=== PATIENT | male | born 1970 | race Caucasian/White ===

== ENCOUNTER 2018-10-25 11:19 | Inpatient (IN) ==
[2018-10-25] MEDS ORDERED: MoRPHine SULFATE 10 MG/ML CARP/VIAL IV STA (12:06)
[2018-10-25] MEDS ORDERED: ONDANSETRON INJ 2 MG/ML 2 ML VIAL IV STA (12:06)
[2018-10-25] MEDS ORDERED: MoRPHine SULFATE 4 MG/ML 1 ML CARP\\VIAL ONE (12:13)
[2018-10-25] MEDS ORDERED: MoRPHine SULFATE 2 MG/ML CARP ONE (12:14)
[2018-10-25] MEDS ORDERED: SODIUM CHLORIDE 0.9% 1000ML 1,000 ML IV SCH (12:15)
[2018-10-25 12:17] LABS: Appearance Urine Clear (Clear); Bilirubin Urine Negative (Negative); Blood Urine Negative (Negative); Color Urine Yellow; Glucose Urine UA Negative (Negative); Ketones Urine Negative (Negative); Leukocyte Esterase Urine Negative (Negative); Nitrite Urine Negative (Negative); Protein Urine Negative (Negative); Urobilinogen Urine Negative (Negative)
[2018-10-25 12:19] LABS: Basophils # (auto) 0.04 K/uL (0-0.2); Basophils % (auto) 0.5 %; Eosinophils # (auto) 0.32 K/uL (0-0.5); Eosinophils % (auto) 3.8 %; Hematocrit (blood only) 42.1 % (42-52); Hemoglobin 14.9 g/dL (14.0-18.0); Immature Granulocytes # (auto) 0.03 K/uL (0.00-0.02); Immature Granulocytes % (auto) 0.4 %; Lymphocytes # (auto) 2.34 K/uL (1.2-3.4); Lymphocytes % (auto) 27.5 %; Mean Corpuscular Hgb Conc 35.4 g/dL (32-36); Mean Platelet Volume 10.5 fL (7.4-10.4); Monocytes # (auto) 0.63 K/uL (0.11-0.59); Monocytes % (auto) 7.4 %; Neutrophils # (auto) 5.14 K/uL (1.4-6.5); Neutrophils % (auto) 60.4 %; Platelet Count 282 K/uL (130-400); RDW Standard Deviation 42.8 fL (36.4-46.3); Red Blood Count 5.01 M/uL (4.7-6.1)
[2018-10-25 12:34] LABS: Albumin Level 3.9 gm/dl (3.4-5.0); BUN Creatinine Ratio 11.2 (10-20); Calcium 8.8 mg/dl (8.5-10.1); Creatinine Clr Calc Pharmacy 131.6 ml/min; Est GFR (African American) 116.1; Est GFR (Non-African American) 100.2; Potassium 3.9 mmol/L (3.5-5.1)
[2018-10-25 12:37] LABS: Bilirubin,Total 0.3 mg/dl (0.2-1); Globulin 4.1 gm/dl (2.5-4.0)
--- NOTE | 2018-10-25 14:10 | Ultrasound Report ---
US gallbladder CLINICAL HISTORY: Right upper quadrant abdominal pain. COMPARISON STUDY: No previous studies for comparison. FINDINGS: This exam is significantly compromised by suboptimal penetration. Hepatic echogenicity is i ncreased. The liver is enlarged. The pancreas is obscured. No gallstones are identified. There is no biliary ductal dilatation although the common bile duct is partially obscured. Visualized portions me asure 4 mm in caliber. There is no right hydronephrosis. IMPRESSION: 1. Exam compromised by suboptimal penetration. Obscured pancreas. 2. Fatty liver and hepatomegaly. 3. No gallstones or biliary ductal dilatation. Electronically signed by: David Peoples M.D. 10/25/2018 2:08 PM
[2018-10-25] MEDS ORDERED: HYDROmorphone INJ 1 MG/ML SYRINGE IV STA (14:57)
[2018-10-25] MEDS ORDERED: IOVERSOL 100ml IV PRN (15:17)
--- NOTE | 2018-10-25 15:34 | CT Scan Report ---
ABDOMEN AND PELVIS CT WITH IV CONTRAST CT DOSE: 1551.20 mGy.cm HISTORY: sever ruq pain TECHNIQUE: Multiaxial CT images of the abdomen and pelvis were performed following the use of intrave nous contrast. A dose lowering technique was utilized adhering to the principles of ALARA. COMPARISON STUDY: None. FINDINGS: A 4 mm subpleural nodule the right middle lobe on image 16. Calcified granuloma within the right lung base. There is a 4 mm nodule within the left lower lobe on image 10. No pneumoperitoneum. No pneumatosis. No suspicious lytic or blastic osseous lesions. Tiny fat-containing umbilical hernia. Prominent distal esophageal lymph node measuring 11 mm. Hepatic steatosis. The gallbladder, pancreas , spleen, and adrenal glands are unremarkable. The kidneys enhance normally. There are few punctate b ilateral renal calculi. No ureteral calculi. No hydronephrosis. Normal bladder. Small fat-containing bilateral inguinal hernias. No retroperitoneal lymphadenopathy. Focal thickening and mild fat strandi ng surrounding the duodenal bulb. There are few adjacent mildly enlarged lymph nodes in the mesentery with the largest measuring 2.2 x 1.4 cm. These may be reactive to the inflammatory change. Best seen on image 158 there is a 1 cm focal ulceration along the medial wall the duodenal bulb. No evidence f or perforation or abscess at this time. Therefore, these findings are likely secondary to peptic ulce r disease with suggestion of impending perforation. Normal appendix. No evidence for bowel obstructio n. IMPRESSION: 1. Focal thickening and mild fat stranding surrounding the duodenal bulb. There is also a 1 cm focal ulceration along the medial wall of the duodenal bulb. No evidence for perforation or abscess at thi s time. Therefore, these findings are likely secondary to peptic ulcer disease with suggestion of imp ending perforation. Endoscopy is recommended to exclude the possibility of an underlying lesion. 2. A few mildly enlarged lymph nodes adjacent to the duodenum which may be reactive. 3. A single mildly enlarged distal periesophageal lymph node. This is of uncertain clinical significa nce. 4. Bilateral nephrolithiasis. No hydronephrosis. 5. Hepatic steatosis. 6. There are 2 subcentimeter indeterminate pulmonary nodule within the lung bases with the largest me asuring 4 mm. Please refer to the chart below for recommended follow-up. Please refer to below summary of Fleischner criteria recommendations for follow-up of incidental CT n odules Sheryl Rockwell, Guidelines for management of small pulmonary nodules detected on CT scans: A mariely garcia from the Fleischner [employer], Radiology 237: [phone].) SOLID NODULES Solitary nodule size: <6 mm * Low risk patients: no follow-up needed * high risk patients: optional CT at 12 months Solitary nodule size: 6-8 mm * Low risk patients: follow-up at 6-12 months, then consider further follow-up at 18-24 months * high risk patients: initial follow-up CT at 6-12 months and then at 18-24 months if no change Solitary nodule size: >8 mm * either low or high risk patients - consider follow-up CT at 3 months, and/or CT-PET, and/or biopsy Multiple nodules size: <6 mm * Low risk patients: no routine follow-up * high risk patients: optional CT at 12 months Multiple nodules size: 6-8 mm * Low risk patients: follow-up at 3-6 months, then consider further follow-up at 18-24 months * high risk patients: follow-up at 3-6 months, then at 18-24 months if no change Multiple nodules size: >8 mm * Low risk patients: follow-up at 3-6 months, then consider further follow-up at 18-24 months * high risk patients: follow-up at 3-6 months, then at 18-24 months if no change Note: newly detected indeterminate nodule in persons 35 years of age or older. * Low risk patients: minimal or absent history of smoking and/or other known risk factors * high risk patients: history of smoking or of other known risk factors (e.g. first degree relative with lung cancer, or exposure to asbestos, radon, uranium) * if a nodule up to 8 mm is partly solid or is ground glass further follow-up is required after 24 m onths to exclude possible slow growing adenocarcinoma ([facility]) SUBSOLID NODULES Solitary pure ground-glass nodule * nodule size <6 mm - no CT follow-up required * nodule size >=6 mm - follow-up CT at 6-12 months, then every 2 years until 5 years Solitary part-solid nodule * nodule size <6 mm - no CT follow-up required * nodule size >=6 mm - follow-up CT at 3-6 months. If unchanged, and solid component remains <6 mm, then annual follow-up for 5 years Multiple subsolid nodules * nodule size <6 mm - follow-up CT at 3-6 months, consider further follow-up at 2 and 4 years if sta ble * nodule size >=6 mm - follow-up CT at 3-6 months, subsequent management based on the most suspiciou s nodule(s) Electronically signed by: Juwan Whitman M.D. 10/25/2018 3:31 PM
[2018-10-25] MEDS ORDERED: PANTOprazole 80 MG in DEXTROSE 5% 100 ML IV ONE (15:51)
[2018-10-25] MEDS ORDERED: PANTOPRAZOLE BOLUS/DRIP 1 EA IV STA (15:51)
[2018-10-25] MEDS ORDERED: PANTOprazole 40 MG in DEXTROSE 5% 100 ML IV SCH (16:00)
--- NOTE | 2018-10-25 16:59 | History & Physical Report ---
Date of Service October 25, 2018 Assessment & Plan (1) Duodenal ulcer: -CT abdomen "Focal thickening and mild fat stranding surrounding the duodenal bulb. There is also a 1 cm focal ulceration along the medial wall of the duodenal bulb. No evidence for perforation or abscess at this time. There fore, these findings are likely secondary to peptic ulcer disease with suggestion of impending perforation" -Gastroenterology consult requested and ED provider discussed with Dr. Fox who advised medical management for now -continue with IV pantoprazole drip -keep NPO except meds (will minimize oral meds) and sips and chips -give IV fluids as D5 1/2 normal saline while NPO -may benefit from further Gastroenterology service intervention such as upper endoscopy -have requested general surgery consult because radiologist have expressed concern for "impending perforation" but patient is clinically stable -pain control without using NSAIDs; will try prn IV acetaminophen for mild pain and prn low dose IV dilaudid for moderate pain for now History of hypertension -will hold home medications of HCTZ and lisinopril for now -hold home medication of atorvastatin Incidental pulmonary nodules -2 subcentimeter indeterminate pulmonary nodule within the lung bases with the largest measuring 4 mm. Please refer to the chart below for recommended follow- up. -follow Fleischner criteria recommendations for follow-up of incidental CT nodules as outpatient Full Code Status [place] [phone] History of Present Illness Primary Care Provider: Kaylynn Bell MD 48 year old who has been having abdominal pain x 2 weeks. Reports that he tried to relieve pain with 4 tablets of ibuprofen BID for the past 1 week without significant relief. Pain localizes to right side of the abdomen and right upper quadrant. Patient reports nausea but no vomiting. Patient reports regular bowel movements and denies blood in the stool. CT abdomen "Focal thickening and mild fat stranding surrounding the duodenal bulb. There is also a 1 cm focal ulceration along the medial wall of the duodenal bulb. No evidence for perforation or abscess at this time. Therefore, these findings are likely secondary to peptic ulcer disease with suggestion of impending perforation" Patient seen and examined by hospitalist and is hemodynamically stable and not in acute distress. Patient reports needing pain control. Denies fever. No shortness of breath. No chest pain. No back pain Reports weekend alcohol use. Denies active smoking Denies history of allergies Family History: denies family history of medical problems Allergies Allergy/AdvReac Type Severity Reaction Status Date / Time No Known Allergies Allergy Mild Unverified 10/25/18 12:19 Home Medications Home Medications Medication Instructions Recorded Confirmed Type atorvastatin [Lipitor] 20 mg PO DAILY 10/25/18 10/25/18 History hydrochlorothiazide 12.5 mg PO DAILY 10/25/18 10/25/18 History lisinopril 10 mg PO DAILY 10/25/18 10/25/18 History Past Med/Surg History Medical History Anxiety HTN (hypertension) Social History Preferred Language: Swedish Communication Ability: Effective Beliefs That Will Affect Care: None Current Living Situation: Spouse Other Information That Helps Us Care for You: No Feels Safe at Home: Yes Safety Concerns: Feels Safe At This Time Smoking Status: Former smoker Hx Alcohol Use: Yes Hx Substance Use: No Physical Exam Vital Signs (Past 24 Hours): Last Vital Signs Temp 36.5 C 10/25/18 11:38 Pulse 84 10/25/18 11:38 Resp 20 10/25/18 11:38 BP 129/70 10/25/18 16:00 Pulse Ox 96 10/25/18 11:38 Constitutional: WD/WN, vitals as above Eyes: PERRL, conjunctivae normal, anicteric sclerae EOM intact bilaterally ENMT: external ear and nose normal, oropharynx normal Neck: trachea midline, no thyromegaly Respiratory: normal respiratory effort, lungs clear to auscultation Cardiovascular: RRR, no murmur, no edema Gastrointestinal (Abdomen): Inspection/Auscultation: normal bowel sounds Percussion/Palpation: + abdomen tender (tenderness of right upper quadrant on palpation) and abdomen soft Musculoskeletal: no cyanosis or clubbing, extremities motor strength 5/5 Head/Neck/Chest: normocephalic and head atraumatic Neurologic: PERRL, EOMI, accommodation nl, no face palsy, no dysarthria CN's II-XI intact bilaterally Psychiatric: A+Ox3, euthymic affect
--- NOTE | 2018-10-25 17:17 | Consultation ---
Date of Consultation October 25, 2018 Assessment & Plan (1) Duodenal ulcer due to nonsteroidal anti-inflammatory drug (NSAID): 48 yr old man with duodenal ulcer with significant inflammation seen on CT but no perforation. Explained that he is at risk for perforation and that surgical repair of a perforated DU would have almost a 4-6 week recovery period. In order to minimize risk of perforation, I would recommend we keep him NPO for the first 24 hours of IV protonix drip. After this, can start clear liquids. Explained that ultimately the IV protonix drip will be converted to intermittent IV dosing and then to PO. Reviewed that he must avoid all NSAIDS. We reviewed that he likely will he need an upper endoscopy but the timing of this will be determined by GI, as it may be too dangerous to do an immediate endoscopy due to the risk of perforation. We discussed the possibility of H. Pylori being a causative factor in his duodenal ulcer. I will defer workup of this to GI. Present on Admission?: Yes History of Present Illness Reason for Consultation: duodenal ulcer Requesting Physician: Osvaldo Quinteros MD History of Present Illness Mr. David is a 48-year-old man who presented to the emergency room complaining of epigastric pain. He has a history of having "gallbladder attacks." For the past few weeks he has had persistent epigastric pain which is worse a few hours after eating. This was of moderate intensity. He has been taking significant doses of ibuprofen and Advil to try to treat this pain. It did not seem to be helping over the course of the past week. He has not noted any nausea or vomiting. As the pain was increasing in intensity, he presented to the emergency room for evaluation. He has no history of duodenal ulcers in the past. He has not had any prior abdominal operation Allergies Allergy/AdvReac Type Severity Reaction Status Date / Time No Known Allergies Allergy Mild Unverified 10/25/18 12:19 Home Medications Home Medications Medication Instructions Recorded Confirmed Type atorvastatin [Lipitor] 20 mg PO DAILY 10/25/18 10/25/18 History hydrochlorothiazide 12.5 mg PO DAILY 10/25/18 10/25/18 History lisinopril 10 mg PO DAILY 10/25/18 10/25/18 History Patient History Medical History Anxiety HTN (hypertension) Social History Preferred Language: Indonesian Communication Ability: Effective Beliefs That Will Affect Care: None Current Living Situation: Spouse Other Information That Helps Us Care for You: No Feels Safe at Home: Yes Safety Concerns: Feels Safe At This Time Smoking Status: Former smoker Hx Alcohol Use: Yes Hx Substance Use: No Review of Systems Constitutional: no fever, no weakness and no weight loss Eyes: no problem reported Ear, Nose, Mouth, Throat: no problem reported Respiratory: no problem reported Cardiovascular: no problem reported Gastrointestinal: as per Subjective / HPI Integumentary: no problem reported Neurologic: no problem reported Psychiatric: no problem reported Physical Exam Vital Signs (Past 24 Hours): Last Vital Signs Temp 36.5 C 10/25/18 11:38 Pulse 84 10/25/18 11:38 Resp 20 10/25/18 11:38 BP 129/70 10/25/18 16:00 Pulse Ox 96 10/25/18 11:38 Constitutional: WD/WN, vitals as above Eyes: PERRL, conjunctivae normal, anicteric sclerae ENMT: external ear and nose normal, oropharynx normal Respiratory: normal respiratory effort, lungs clear to auscultation Cardiovascular: RRR, no murmur, no edema Gastrointestinal (Abdomen): Inspection/Auscultation: abdomen normal to inspection and normal bowel sounds; abdomen not distended Percussion/Palpation: + abdomen tender (epigastrium), + guarding (in epigastrium) and abdomen soft; no abdominal mass Musculoskeletal: no cyanosis or clubbing, extremities motor strength 5/5 Neurologic: CN's II-XI intact bilaterally and awake Results & Data Laboratory Results CBC and BMP within normal limits Diagnostic Findings IMPRESSION: 1. Focal thickening and mild fat stranding surrounding the duodenal bulb. There is also a 1 cm focal ulceration along the medial wall of the duodenal bulb. No evidence for perforation or abscess at this time. Therefore, these findings are likely secondary to peptic ulcer disease with suggestion of impending perforation. Endoscopy is recommended to exclude the possibility of an underlying lesion. 2. A few mildly enlarged lymph nodes adjacent to the duodenum which may be reactive. 3. A single mildly enlarged distal periesophageal lymph node. This is of uncertain clinical significance. 4. Bilateral nephrolithiasis. No hydronephrosis. 5. Hepatic steatosis. 6. There are 2 subcentimeter indeterminate pulmonary nodule within the lung bases with the largest measuring 4 mm. Please refer to the chart below for recommended follow-up
[2018-10-25] MEDS ORDERED: ACETAMINOPHEN 65 ML IV PRN (17:45)
--- NOTE | 2018-10-25 18:03 | Emergency Department Note ---
History of Present Illness General Chief complaint: GI Assessment Stated complaint: GALLBLADDER ATTACK, PAIN, NAUSEA Source: patient Mode of arrival: ambulatory Limitations: no limitations History of Present Illness Maximum Pain Intensity: 0 This patient is a 48-year-old male who presents to the emergency department complaining of "gallbladder pain" for 2 weeks. The patient reports that he has been having intense pain across the upper abdomen for the past 2 weeks. The pain is constant but does become worse with eating. He has had associated nausea but no vomiting. He has been taking Aleve at home for the pain without relief. He rates his discomfort a 9/10. He does state that he feels he becomes slightly gassy after eating anything. He had some similar symptoms a year ago and had an ultrasound of his gallbladder as well as a HIDA scan which showed some decreased function. He denies any fevers or changes in bowel movements. He states he has been unable to eat or sleep due to the pain. Home Medications Home Medications Medication Instructions Recorded Confirmed Type atorvastatin [Lipitor] 20 mg PO DAILY 10/25/18 10/25/18 History hydrochlorothiazide 12.5 mg PO DAILY 10/25/18 10/25/18 History lisinopril 10 mg PO DAILY 10/25/18 10/25/18 History Allergies Allergy/AdvReac Type Severity Reaction Status Date / Time No Known Allergies Allergy Mild Unverified 10/25/18 12:19 Past Med/Surg History Medical History Anxiety HTN (hypertension) Social History Preferred Language: Luxembourgish Communication Ability: Effective Beliefs That Will Affect Care: None Current Living Situation: Spouse Other Information That Helps Us Care for You: No Feels Safe at Home: Yes Safety Concerns: Feels Safe At This Time Smoking Status: Former smoker Hx Alcohol Use: Yes Hx Substance Use: No Review of Systems A total of 10 systems reviewed and were otherwise negative Physical Exam Vital Signs Vital Signs - 24 hr 10/25/18 11:38 10/25/18 13:00 10/25/18 16:00 Temperature 36.5 C Temperature Source Oral Sepsis Recent Fever Within 48 Hours No Sepsis Action Taken by Nursing No Action Required Pulse Rate 84 Pulse Rate [Finger] Respiratory Rate 20 Respiratory Effort / Characteristics Respiratory Depth Respiratory Pattern Blood Pressure 133/85 Blood Pressure [Right Arm] 128/72 129/70 Blood Pressure Mean 101 Blood Pressure Mean [Right Arm] 90 89 Blood Pressure Position Sitting Blood Pressure Position [Right Arm] Pulse Oximetry 96 Oxygen Delivery Method Room Air 10/25/18 16:05 10/25/18 18:00 10/25/18 20:51 Temperature 36.4 C L Temperature Source Oral Sepsis Recent Fever Within 48 Hours Sepsis Action Taken by Nursing Pulse Rate Pulse Rate [Finger] 70 Respiratory Rate 18 Respiratory Effort / Characteristics Non-Labored Spontaneous Respiratory Depth Normal Respiratory Pattern Regular Blood Pressure Blood Pressure [Right Arm] 130/80 103/65 Blood Pressure Mean Blood Pressure Mean [Right Arm] 96 77 Blood Pressure Position Blood Pressure Position [Right Arm] Lying Pulse Oximetry 91 Oxygen Delivery Method Room Air Room Air VITALS: Vitals are noted on the nurse's note and reviewed by myself. Vital signs stable. GENERAL: This is a 48-year-old male, in no acute distress, nondiaphoretic, well- developed well-nourished. SKIN: The skin was without rashes. EARS: External auditory canals clear, tympanic membranes pearly farrell without erythema or effusion bilaterally. EYES: Pupils equal round and reactive to light and accommodation. MOUTH: Mucous membranes moist. Tonsils are not enlarged. Pharynx without eryth jacobo or exudate. NECK: Supple without nuchal rigidity. No lymphadenopathy. HEART: Regular rate and rhythm without murmurs gallops or rubs. LUNGS: Clear to auscultation bilaterally without wheezes, rales or rhonchi. ABDOMEN: Positive bowel sounds x 4. Soft, nondistended. There is significant tenderness to palpation in the epigastric region and right upper quadrant. No guarding or rebound tenderness. EXTREMITIES: No pitting edema. NEURO: Patient was alert and oriented to person place and time. Course Reevaluation(s) Reevaluation #1: Patient was reevaluated and results discussed. Consultations Consultation #1: Dr. Fox - gastroenterology Dr. fox agreed with beginning a Protonix drip and admitting the patient to medicine. Consultation #2: Dr. Quinteros - [facility] hospitalist Dr. Quinteros will evaluate the patient for admission. He did request that I speak with the surgical service. Consultation #3: Dr. Hager - general surgery Administered Medications Dextrose/Sodium Chloride (D5w And 1/2nss) 1,000 mls @ 80 mls/hr IV .[id number] MARTY Stop: 11/24/18 16:59 Last Infusion: 10/25/18 20:20 Dose: 80 mls/hr Documented by: [id number] Infusion: 10/25/18 19:37 Dose: 0 mls/hr Documented by: [id number] Admin: 10/25/18 19:00 Dose: 80 mls/hr Documented by: [id number] Acetaminophen (Ofirmev) 65 mls @ 200 mls/hr IV Q8H PRN PRN Reason: mild pain Stop: 11/24/18 17:44 Last Infusion: 10/25/18 20:20 Dose: 0 mls/hr Documented by: [id number] Admin: 10/25/18 19:38 Dose: 200 mls/hr Documented by: [id number] Discontinued Medications Hydromorphone HCl (Dilaudid) 1 mg IV NOW STA Stop: 10/25/18 14:58 Last Admin: 10/25/18 15:05 Dose: 1 mg Documented by: [id number] Sodium Chloride (Nss 1000ml) 1,000 mls @ 999 mls/hr IV .[id number] MARTY Stop: 10/25/18 13:15 Last Infusion: 10/25/18 13:40 Dose: 0 mls/hr Documented by: [id number] Admin: 10/25/18 12:21 Dose: 999 mls/hr Documented by: [id number] Pantoprazole Sodium 40 mg/ (Dextrose) 100 mls @ 20 mls/hr IV Q5H MARTY Stop: 11/24/18 15:59 Last Infusion: 10/25/18 19:09 Dose: 0 mls/hr Documented by: [id number] Admin: 10/25/18 17:01 Dose: 20 mls/hr Documented by: [id number] Pantoprazole Sodium 80 mg/ (Dextrose) 120 mls @ 400 mls/hr IV NOW ONE Stop: 10/25/18 16:08 Last Infusion: 10/25/18 17:01 Dose: 0 mls/hr Documented by: [id number] Admin: 10/25/18 16:40 Dose: 400 mls/hr Documented by: [id number] Pantoprazole Sodium (Protonix Bolus/Drip) 0 mls @ 1 mls/hr IV ONE STA Stop: 10/25/18 15:52 Last Admin: 10/25/18 17:02 Dose: Not Given Documented by: [id number] Ioversol (Optiray 320 100ml) 93 ml IV ONCE PRN PRN Reason: Interaction Checking Stop: 10/29/18 15:16 Last Admin: 10/25/18 15:17 Dose: 93 ml Documented by: [id number] Morphine Sulfate (Morphine Sulfate) 6 mg IV NOW STA Stop: 10/25/18 12:07 Last Admin: 10/25/18 12:21 Dose: 6 mg Documented by: [id number] Morphine Sulfate (Morphine Sulfate) Confirm Administered Dose 4 mg .ROUTE .STK- MED ONE Stop: 10/25/18 12:14 Last Admin: 10/25/18 12:22 Dose: Not Given Documented by: [id number] Morphine Sulfate (Morphine Sulfate) Confirm Administered Dose 2 mg .ROUTE .STK- MED ONE Stop: 10/25/18 12:15 Last Admin: 10/25/18 12:22 Dose: Not Given Documented by: [id number] Ondansetron HCl (Zofran) 4 mg IV NOW STA Stop: 10/25/18 12:07 Last Admin: 10/25/18 12:21 Dose: 4 mg Documented by: [id number] Medical Decision Making Differential Diagnosis Differential diagnosis includes cholecystitis, choledocholithiasis, peptic ulcer disease, gastritis, bowel obstruction, colitis, among others. Home Medications Current Medication List: was personally reviewed by me Laboratory Data Attestation: I reviewed the patient's lab results. Result diagrams: 10/25/18 12:05 10/25/18 12:05 Lab Results 10/25/18 10/25/18 10/25/18 Range/Units 11:50 12:05 12:05 WBC 8.50 (4.8-10.8) K/uL RBC 5.01 (4.7-6.1) M/uL Hgb 14.9 (14.0-18.0) g/dL Hct 42.1 (42-52) % MCV 84.0 (80-100) fL MCH 29.7 (25-34) pg MCHC 35.4 (32-36) g/dL RDW Std Deviation 42.8 (36.4-46.3) fL RDW Coeff of Thea 14.0 (11.5-14.5) % Plt Count 282 (130-400) K/uL MPV 10.5 H (7.4-10.4) fL Immature Gran % (Auto) 0.4 % Neut % (Auto) 60.4 % Lymph % (Auto) 27.5 % Webb % (Auto) 7.4 % Eos % (Auto) 3.8 % Baso % (Auto) 0.5 % Immature Gran # (Auto) 0.03 H (0.00-0.02) K/uL Neut # (Auto) 5.14 (1.4-6.5) K/uL Lymph # (Auto) 2.34 (1.2-3.4) K/uL Webb # (Auto) 0.63 H (0.11-0.59) K/uL Eos # (Auto) 0.32 (0-0.5) K/uL Baso # (Auto) 0.04 (0-0.2) K/uL Sodium 140 (136-145) mmol/L Potassium 3.9 (3.5-5.1) mmol/L Chloride 106 (98-107) mmol/L Carbon Dioxide 28 (21-32) mmol/L Anion Gap 6.0 (3-11) BUN 10 (7-18) mg/dl Creatinine 0.88 (0.6-1.4) mg/dl Est Cr Clr Drug Dosing 131.6 ml/min Est GFR ( Amer) 116.1 Est GFR (Non-Af Amer) 100.2 BUN/Creatinine Ratio 11.2 (10-20) Glucose 99 (70-99) mg/dl Calcium 8.8 (8.5-10.1) mg/dl Total Bilirubin 0.3 (0.2-1) mg/dl AST 31 (15-37) U/L ALT 75 (12-78) U/L Alkaline Phosphatase 63 (45-117) U/L Total Protein 8.0 (6.4-8.2) gm/dl Albumin 3.9 (3.4-5.0) gm/dl Globulin 4.1 H (2.5-4.0) gm/dl Albumin/Globulin Ratio 1.0 (0.9-2) Lipase 150 (73-393) U/L Urine Color Yellow Urine Appearance Clear (Clear) Urine pH 6.0 (4.5-7.5) Ur Specific [place] 1.020 (1.000-1.030) Urine Protein Negative (Negative) Urine Glucose (UA) Negative (Negative) Urine Ketones Negative (Negative) Urine Blood Negative (Negative) Urine Nitrite Negative (Negative) Urine Bilirubin Negative (Negative) Urine Urobilinogen Negative (Negative) Ur Leukocyte Esterase Negative (Negative) Imaging Data Attestation: I personally reviewed and interpreted this imaging study as follows: Radiologist's Impression: US gallbladder FINDINGS: This exam is significantly compromised by suboptimal penetration. Hepatic echogenicity is increased. The liver is enlarged. The pancreas is obscured. No gallstones are identified. There is no biliary ductal dilatation although the common bile duct is partially obscured. Visualized portions measure 4 mm in caliber. There is no right hydronephrosis. IMPRESSION: 1. Exam compromised by suboptimal penetration. Obscured pancreas. 2. Fatty liver and hepatomegaly. 3. No gallstones or biliary ductal dilatation. ABDOMEN AND PELVIS CT WITH IV CONTRAST FINDINGS: A 4 mm subpleural nodule the right middle lobe on image 16. Calcified granuloma within the right lung base. There is a 4 mm nodule within the left lower lobe on image 10. No pneumoperitoneum. No pneumatosis. No suspicious lytic or blastic osseous lesions. Tiny fat-containing umbilical hernia. Prominent distal esophageal lymph node measuring 11 mm. Hepatic steatosis. The gallbladder, pancreas, spleen, and adrenal glands are unremarkable. The kidneys enhance normally. There are few punctate bilateral renal calculi. No ureteral calculi. No hydronephrosis. Normal bladder. Small fat-containing bilateral inguinal hernias. No retroperitoneal lymphadenopathy. Focal thickening and mild fat stranding surrounding the duodenal bulb. There are few adjacent mildly enlarged lymph nodes in the mesentery with the largest measuring 2.2 x 1.4 cm. These may be reactive to the inflammatory change. Best seen on image 158 there is a 1 cm focal ulceration along the medial wall the duodenal bulb. No evidence for perforation or abscess at this time. Therefore, these findings are likely secondary to peptic ulcer disease with suggestion of impending perforation. Normal appendix. No evidence for bowel obstruction. IMPRESSION: 1. Focal thickening and mild fat stranding surrounding the duodenal bulb. There is also a 1 cm focal ulceration along the medial wall of the duodenal bulb. No evidence for perforation or abscess at this time. Therefore, these findings are likely secondary to peptic ulcer disease with suggestion of impending perforation. Endoscopy is recommended to exclude the possibility of an underlying lesion. 2. A few mildly enlarged lymph nodes adjacent to the duodenum which may be reactive. 3. A single mildly enlarged distal periesophageal lymph node. This is of uncertain clinical significance. 4. Bilateral nephrolithiasis. No hydronephrosis. 5. Hepatic steatosis. 6. There are 2 subcentimeter indeterminate pulmonary nodule within the lung bases with the largest measuring 4 mm. Please refer to the chart below for recommended follow-up. Blood Pressure Blood Pressure Findings: Normal blood pressure Blood Pressure Disposition: did not require urgent referral MDM Narrative The patient is a 48-year-old male who presents today complaining of upper ab dominal pain. Labs revealed no leukocytosis, anemia or concerning electrolyte abnormalities. Kidney function within normal limits. LFTs within normal limits. Gallbladder ultrasound was initially performed and showed no ductal dilatation, although the gallbladder was not well visualized. CT of the abdomen and pelvis was then performed which showed duodenal ulcer with suggestion of impending perforation, per radiology. Patient was given Protonix bolus and started on a drip. I spoke with GI, who recommended admission to the medical service. The patient was admitted to the [facility] service for further evaluation and care. Impression & Plan Duodenal ulcer Discharge Plan Visit Data *Final* Discharge Date/Time: 10/25/18 18:05 Chief Complaint: GI Assessment Stated Complaint: GALLBLADDER ATTACK, PAIN, NAUSEA ED Provider: Rose Marie Vora ED Midlevel Provider: Connie Garcia Discharge Problem: Duodenal ulcer Patient Disposition: Admitted As Inpatient Discharge Instructions Interventions: ED Discharge Assessment Last Done: 10/25/18 18:05
[2018-10-25] MEDS: D5W AND 1/2NSS 1,000 ML IV SCH (19:00)
[2018-10-25] MEDS: HYDROmorphone INJ 0.5 MG/0.5 ML SYR IV PRN (21:44)
[2018-10-25] MEDS: PANTOprazole 40 MG in DEXTROSE 5% 100 ML IV SCH (22:50)
[2018-10-25] MEDS: ZOLPIDEM TARTRATE 5 MG TAB PO PRN (23:29)
[2018-10-26] MEDS: PANTOprazole 40 MG in DEXTROSE 5% 100 ML IV SCH ×3 (03:09→14:53)
[2018-10-26] MEDS ORDERED: HYDROmorphone INJ 0.5 MG/0.5 ML SYR IV STA (05:22)
[2018-10-26 06:36] LABS: Basophils # (auto) 0.02 K/uL (0-0.2); Basophils % (auto) 0.2 %; Eosinophils # (auto) 0.36 K/uL (0-0.5); Eosinophils % (auto) 4.3 %; Hemoglobin 13.2 g/dL (14.0-18.0); Immature Granulocytes # (auto) 0.03 K/uL (0.00-0.02); Immature Granulocytes % (auto) 0.4 %; Lymphocytes # (auto) 2.71 K/uL (1.2-3.4); Lymphocytes % (auto) 32.5 %; Mean Corpuscular Hgb Conc 34.7 g/dL (32-36); Mean Corpuscular Volume 84.4 fL (80-100); Mean Platelet Volume 10.7 fL (7.4-10.4); Monocytes # (auto) 0.57 K/uL (0.11-0.59); Monocytes % (auto) 6.8 %; Neutrophils # (auto) 4.64 K/uL (1.4-6.5); Neutrophils % (auto) 55.8 %; Platelet Count 299 K/uL (130-400); RDW Coefficient of Variation 14.2 % (11.5-14.5); RDW Standard Deviation 43.3 fL (36.4-46.3); White Blood Count 8.33 K/uL (4.8-10.8)
[2018-10-26 07:13] LABS: Albumin Level 3.5 gm/dl (3.4-5.0); BUN Creatinine Ratio 11.8 (10-20); Calcium 8.2 mg/dl (8.5-10.1); Creatinine Clr Calc Pharmacy 116.2 ml/min; Est GFR (African American) 102.5; Est GFR (Non-African American) 88.4; Potassium 3.6 mmol/L (3.5-5.1)
[2018-10-26 07:16] LABS: Bilirubin,Total 0.6 mg/dl (0.2-1); Globulin 3.4 gm/dl (2.5-4.0); Total Protein 6.9 gm/dl (6.4-8.2)
[2018-10-26] MEDS ORDERED: ONDANSETRON INJ 2 MG/ML 2 ML VIAL IV PRN (07:21)
[2018-10-26] MEDS: D5W AND 1/2NSS 1,000 ML IV SCH (08:17)
--- NOTE | 2018-10-26 09:40 | Gastrointestinal Consultation ---
Date of Consultation October 26, 2018 Assessment & Plan (1) PUD (peptic ulcer disease): Pt is a 48 y/o male w epigastric, RUQ abd pain, hx of NSAIDs uses; found to have duodenal bulb ulcer w/o abscess or perforation at this time. - Keep NPO - PPI gtt - Plan for EGD evaluation w Dr. Cesar today. Likely will take bx also to r/o Hpylori infection. GI will give further recs after EGD is completed - Avoid NSAIDs, ETOH - Appreciate Surgery following pt Supervising Physician Co-Signing Physician Notes I performed a history and physical examination of the patient, including specifically on physical exam - soft, nontender abdomen. I have discussed the patient's management with Vi. Please refer to the nurse practitioner's note for the documented findings and plan of care. Abdominal pain with evidence of DU on imaging, no signs of perforation. EGD today for further evaluation IV PPI Avoid NSAIDs Patient understands there is a small risk of spontaneous perforation hence will closely monitor History of Present Illness Reason for Consultation: Peptic ulcer disease Requesting Physician: Dr. Osvaldo Quinteros Attending Physician: Dr. Nisha Cesar History of Present Illness Pt is a 48 y/o male who presented to ED yesterday w c/o epigastric and RUQ abd pain x 2 weeks. He's been taking 4 tabs of Ibuprofen BID x 1 week w/o relief of pain. He has associated nausea w/o vomiting. Denies any bowel habit changes. Initial RUQ abd u/s showe signs of fatty liver and hepatomegaly. He had CT abd/pelvis w/ contrast which then showed focal thickening and mild fat stranding surrounding the duodenal bulb. There is also a 1 cm focal ulceration along the medial wall of the duodenal bulb. No evidence for perforation or abscess at this time. Therefore, these findings are likely secondary to peptic ulcer disease with suggestion of impending perforation. There are also a few mildly enlarged lymph nodes adjacent to the duodenum which may be reactive, a single mildly enlarged distal periesophageal lymph node. Surgery consulted, no plans for surgical intervention at this time. He's been made NPO since admission, and PPI bolus, gtt started. His VS is stable, labs w/o signs of leukocytosis, significant anemia, no lactic acidosis. He's currently seen laying in bed, still c/o epigastric and RUQ abd pain but no signs of N/V. He denies any hx of EGD. Denies tobacco or ETOH abuses Allergies Allergy/AdvReac Type Severity Reaction Status Date / Time No Known Allergies Allergy Mild Unverified 10/25/18 12:19 Home Medications Home Medications Medication Instructions Recorded Confirmed Type atorvastatin [Lipitor] 20 mg PO DAILY 10/25/18 10/25/18 History hydrochlorothiazide 12.5 mg PO DAILY 10/25/18 10/25/18 History lisinopril 10 mg PO DAILY 10/25/18 10/25/18 History Patient History Medical History Anxiety HTN (hypertension) Peptic ulcer disease Social History Preferred Language: Yakut Communication Ability: Effective Beliefs That Will Affect Care: None Current Living Situation: Spouse Other Information That Helps Us Care for You: No Feels Safe at Home: Yes Safety Concerns: Feels Safe At This Time Smoking Status: Former smoker Hx Alcohol Use: Yes Hx Substance Use: No Review of Systems Constitutional: as per Subjective / HPI Respiratory: no cough and no dyspnea Cardiovascular: no chest pain Gastrointestinal: as per Subjective / HPI Physical Exam Vital Signs (Past 24 Hours): Last Vital Signs Temp 36.9 C 10/26/18 07:52 Pulse 69 10/26/18 07:52 Resp 18 10/26/18 07:52 BP 122/66 10/26/18 07:52 Pulse Ox 96 10/26/18 07:52 Constitutional: WD/WN, vitals as above well groomed, cooperative and comfortable Eyes: PERRL, conjunctivae normal, anicteric sclerae ENMT: external ear and nose normal, oropharynx normal Respiratory: normal respiratory effort, lungs clear to auscultation Cardiovascular: RRR, no murmur, no edema Gastrointestinal (Abdomen): Inspection/Auscultation: normal bowel sounds Percussion/Palpation: + abdomen tender (epigastric, RUQ, RLQ) and abdomen soft Skin: no rashes, warm and dry no jaundice Neurologic: Motor/Sensory: no asterixis Psychiatric: A+Ox3, euthymic affect Lymphatic: no lymphedema Results & Data Laboratory Results Laboratory Results - last 72 hr 10/25/18 10/25/18 10/25/18 11:50 12:05 12:05 WBC 8.50 RBC 5.01 Hgb 14.9 Hct 42.1 MCV 84.0 MCH 29.7 MCHC 35.4 RDW Std Deviation 42.8 RDW Coeff of Thea 14.0 Plt Count 282 MPV 10.5 H Immature Gran % (Auto) 0.4 Neut % (Auto) 60.4 Lymph % (Auto) 27.5 [place] % (Auto) 7.4 Eos % (Auto) 3.8 Baso % (Auto) 0.5 Immature Gran # (Auto) 0.03 H Neut # (Auto) 5.14 Lymph # (Auto) 2.34 [place] # (Auto) 0.63 H Eos # (Auto) 0.32 Baso # (Auto) 0.04 Sodium 140 Potassium 3.9 Chloride 106 Carbon Dioxide 28 Anion Gap 6.0 BUN 10 Creatinine 0.88 Est Cr Clr Drug Dosing 131.6 Est GFR ( Amer) 116.1 Est GFR (Non-Af Amer) 100.2 BUN/Creatinine Ratio 11.2 Glucose 99 Calcium 8.8 Total Bilirubin 0.3 AST 31 ALT 75 Alkaline Phosphatase 63 Total Protein 8.0 Albumin 3.9 Globulin 4.1 H Albumin/Globulin Ratio 1.0 Lipase 150 Urine Color Yellow Urine Appearance Clear Urine pH 6.0 Ur Specific [place] 1.020 Urine Protein Negative Urine Glucose (UA) Negative Urine Ketones Negative Urine Blood Negative Urine Nitrite Negative Urine Bilirubin Negative Urine Urobilinogen Negative Ur Leukocyte Esterase Negative 10/26/18 10/26/18 05:53 05:53 WBC 8.33 RBC 4.50 L Hgb 13.2 L Hct 38.0 L MCV 84.4 MCH 29.3 MCHC 34.7 RDW Std Deviation 43.3 RDW Coeff of Thea 14.2 Plt Count 299 MPV 10.7 H Immature Gran % (Auto) 0.4 Neut % (Auto) 55.8 Lymph % (Auto) 32.5 [place] % (Auto) 6.8 Eos % (Auto) 4.3 Baso % (Auto) 0.2 Immature Gran # (Auto) 0.03 H Neut # (Auto) 4.64 Lymph # (Auto) 2.71 [place] # (Auto) 0.57 Eos # (Auto) 0.36 Baso # (Auto) 0.02 Sodium 137 Potassium 3.6 Chloride 104 Carbon Dioxide 28 Anion Gap 5.0 BUN 12 Creatinine 0.99 Est Cr Clr Drug Dosing 116.2 Est GFR ( Amer) 102.5 Est GFR (Non-Af Amer) 88.4 BUN/Creatinine Ratio 11.8 Glucose 101 H Calcium 8.2 L Total Bilirubin 0.6 AST 33 ALT 65 Alkaline Phosphatase 56 Total Protein 6.9 Albumin 3.5 Globulin 3.4 Albumin/Globulin Ratio 1.0 Lipase Urine Color Urine Appearance Urine pH Ur Specific [place] Urine Protein Urine Glucose (UA) Urine Ketones Urine Blood Urine Nitrite Urine Bilirubin Urine Urobilinogen Ur Leukocyte Esterase
--- NOTE | 2018-10-26 11:14 | Anesthesiology Consultation ---
Date of Service October 26, 2018 Assessment & Plan (1) Encounter for pre-operative examination: Chart Review Chart Review: Acceptable Risk for Surgery and Patient NOT seen in Pre Admission Testing Consults Requested none NPO Date Last Intake of Fluids: 10/25/18 Time Last Intake of Fluids: 23:00 Date Last Intake of Solids: 10/24/18 Time Last Intake of Solids: 18:00 History Surgery Operation Date: 10/26/18 09:00 Proposed Procedures p Esophagogastroduodenoscopy Dr Cesar - Nisha Cesar MD Height/Weight Height: 5 ft 9 in Weight: 124.1 kg Allergies Allergy/AdvReac Type Severity Reaction Status Date / Time No Known Allergies Allergy Mild Unverified 10/25/18 12:19 Medications Home Medications Medication Instructions Recorded Confirmed Last Taken atorvastatin [Lipitor] 20 mg PO DAILY 10/25/18 10/25/18 Unknown hydrochlorothiazide 12.5 mg PO DAILY 10/25/18 10/25/18 Unknown lisinopril 10 mg PO DAILY 10/25/18 10/25/18 Unknown Active Medications Generic Name Dose Route Start Last Admin Trade Name Freq PRN Reason Stop Dose Admin Hydromorphone HCl 0.5 mg 10/25/18 17:34 10/25/18 21:44 Dilaudid IV 11/08/18 17:33 0.5 mg Q8H PRN Administration Moderate Pain Dextrose/Sodium Chloride 1,000 mls @ 80 mls/hr 10/25/18 17:00 10/26/18 11:02 D5w And 1/2nss IV 11/24/18 16:59 0 mls/hr .[id number] MARTY Infusion Pantoprazole Sodium 40 mg/ 100 mls @ 20 mls/hr 10/25/18 22:00 10/26/18 11:02 Dextrose IV 11/24/18 21:59 0 mg/hr Q5H MARTY 0 mls/hr Infusion 8 MG/HR Acetaminophen 65 mls @ 200 mls/hr 10/25/18 17:45 10/25/18 20:20 Ofirmev IV 11/24/18 17:44 Infused Q8H PRN Infusion mild pain Zolpidem Tartrate 5 mg 10/25/18 16:45 10/25/18 23:29 Ambien PO 11/24/18 16:44 5 mg HS PRN Administration Sleep Past Medical History Medical History Anxiety Duodenal ulcer HTN (hypertension) Morbid obesity Peptic ulcer disease Sleep apnea never tested Past Surgical History Surgical History History of back surgery History of colonoscopy Social History Smoking Status: Former smoker Hx Alcohol Use: Yes Alcohol type: beer alcohol intake frequency: a few times a week Hx Substance Use: No Physical Exam Vital Signs Last Vital Signs Temp 36.6 C 10/26/18 11:00 Pulse 73 10/26/18 11:00 Resp 18 10/26/18 11:00 BP 128/81 10/26/18 11:00 Pulse Ox 92 10/26/18 11:00 Testing Laboratory Results 10/26/18 05:53 10/26/18 05:53 Urine Color Yellow 10/25/18 11:50 Urine Appearance Clear (Clear) 10/25/18 11:50 Urine pH 6.0 (4.5-7.5) 10/25/18 11:50 Ur Specific [place] 1.020 (1.000-1.030) 10/25/18 11:50 Urine Protein Negative (Negative) 10/25/18 11:50 Urine Glucose (UA) Negative (Negative) 10/25/18 11:50 Urine Ketones Negative (Negative) 10/25/18 11:50 Urine Nitrite Negative (Negative) 10/25/18 11:50 Ur Leukocyte Esterase Negative (Negative) 10/25/18 11:50
[2018-10-26] MEDS ORDERED: PROPOFOL IV EMULSION 10 MG/ML 20 ML VIAL IV ONE ×2 (11:42→13:20)
[2018-10-26] MEDS ORDERED: LIDOCAINE HCL 2% 2 ML VIAL/AMP(20MG/ML) INFIL ONE (11:42)
[2018-10-26] MEDS ORDERED: fentaNYL citrate 100 MCG/2 ML VIAL ONE ×2 (11:54→13:07)
--- NOTE | 2018-10-26 13:19 | GI REPORT ---
Patient Name: Jerad David Procedure Date: 10/26/2018 11:43 AM Date of : 1970 Admit Type: Inpatient Age: 48 Gender: Male Attending MD: Nisha Cesra MD Procedure: Upper GI endoscopy Providers: Nisha Cesar MD Referring MD: Osvaldo Quinteros M.d. Indications: Epigastric abdominal pain, Abnormal CT of the GI tract Medicines: Monitored Anesthesia Care Complications: No immediate complications. Estimated Blood Loss: Estimated blood loss: none. Procedure: Pre-Anesthesia Assessment: - Prior to the procedure, a History and Physical was performed, and patient medications and allergies were reviewed. The patient is competent. The risks and benefits of the procedure and the sedation options and risks were discussed with the patient. All questions were answered and informed consent was obtained. Patient identification and proposed procedure were verified by the physician and the nurse in the procedure room. Mental Status Examination: alert and oriented. Airway Examination: normal oropharyngeal airway and neck mobility. Respiratory Examination: clear to auscultation. CV Examination: normal. ASA Grade Assessment: II - A patient with mild systemic disease. After reviewing the risks and benefits, the patient was deemed in satisfactory condition to undergo the procedure. The anesthesia plan was to use monitored anesthesia care (MAC). Immediately prior to administration of medications, the patient was re-assessed for adequacy to receive sedatives. The heart rate, respiratory rate, oxygen saturations, blood pressure, adequacy of pulmonary ventilation, and response to care were monitored throughout the procedure. The physical status of the patient was re-assessed after the procedure. After obtaining informed consent, the endoscope was passed under direct vision. Throughout the procedure, the patient's blood pressure, pulse, and oxygen saturations were monitored continuously. The Endoscope was introduced through the mouth, and advanced to the second part of duodenum. The upper GI endoscopy was accomplished without difficulty. The patient tolerated the procedure well. Findings: The examined esophagus was normal. Mild inflammation characterized by erythema was found in the stomach. Biopsies were taken with a cold forceps for Helicobacter pylori testing. Verification of patient identification for the specimen was done by the physician and nurse using the patient's name and date. One non-bleeding deeply cratered duodenal ulcer with no stigmata of bleeding was found in the duodenal bulb. There is extensive surrounding edema and inflammation. The lesion was 12 mm in largest dimension. The second portion of the duodenum was normal. Impression: - Normal esophagus. - Gastritis. Biopsied. - One non-bleeding deeply cratered duodenal ulcer with surrounding inflammation. Likely NSAIDs related. - Normal second portion of the duodenum. Recommendation: - [facility] care. - Clear liquid diet for 2 days then advance as tolerated. - Use a proton pump inhibitor IV daily for 2 days then switch to PO BID for 2 months. - Repeat upper endoscopy in 2 months to check healing. - Avoid NSAIDs. - Monitor for signs of acute abdomen as the lesion is high risk for spontaneous perforation. Nisha Cesar MD 10/26/2018 1:19:16 PM This report has been signed electronically. Note Initiated On: 10/26/2018 11:43 AM Number of Addenda: 0 I attest to the content of the Intraoperative Record and orders documented therein, exceptions below {[id number]}
--- NOTE | 2018-10-26 13:29 | Anesthesiology Progress Note ---
Date of Service October 26, 2018 Anesthesia Post Procedure Vital Signs Vital Signs: Temp Pulse Pulse Resp BP Pulse Ox 10/26/18 11:00 36.6 C 73 18 128/81 92 10/26/18 07:52 36.9 C 69 18 122/66 96 10/26/18 07:37 70 10/26/18 05:30 74 110/68 10/26/18 04:00 36.5 C 65 18 98/61 L 94 10/25/18 23:56 73 10/25/18 21:43 71 116/87 96 10/25/18 21:17 85 10/25/18 21:16 85 10/25/18 20:51 36.4 C L 70 18 103/65 91 10/25/18 18:00 130/80 10/25/18 16:00 129/70 Pain Intensity Abdomen: Pain Intensity: 4 Notes Mental Status: alert / awake / arousable Patient Amnestic to Procedure: Yes Nausea / Vomiting: adequately controlled Pain: adequately controlled Airway Patency, RR, SpO2: stable & adequate BP & HR: stable & adequate Hydration State: stable & adequate Anesthetic Complications: no major complications apparent and Pt Satisfied with anesthetic care
--- NOTE | 2018-10-26 15:43 | Hospitalist Progress Note ---
Date of Service October 26, 2018 Assessment & Plan (1) Duodenal ulcer: Dudodenal ulcer with high risk for perforation -CT abdomen "Focal thickening and mild fat stranding surrounding the duodenal bulb. There is also a 1 cm focal ulceration along the medial wall of the duodenal bulb. No evidence for perforation or abscess at this time. Therefore, these findings are likely secondary to peptic ulcer disease with suggestion of impending perforation" -patient had EGD performed on 10/26/18 The examined esophagus was normal. Mild inflammation characterized by erythema was found in the stomach. Biopsies were taken with a cold forceps for Helicobacter pylori testing. One non-bleeding deeply cratered duodenal ulcer with no stigmata of bleeding was found in the duodenal bulb. There is extensive surrounding edema and inflammation. The lesion was 12 mm in largest dimension. The second portion of the duodenum was normal. Gastroenterology Impression: - of Normal esophagus. - Gastritis. Biopsied. - One non-bleeding deeply cratered duodenal ulcer with surrounding inflammation. Likely NSAIDs related. - Normal second portion of the duodenum. GI Recommendation: - Return patient to [facility] for [facility] care; Clear liquid diet for 2 days then advance as tolerated; Use a proton pump inhibitor IV daily for 2 days then; switch to PO BID for 2 months; - Repeat upper endoscopy in 2 months to check healing; Avoid NSAIDs; Monitor for signs of acute abdomen as the lesion is high risk for spontaneous perforation. -will continue Carafate History of hypertension -will hold home medications of HCTZ and lisinopril for now -hold home medication of atorvastatin Incidental pulmonary nodules -2 subcentimeter indeterminate pulmonary nodule within the lung bases with the largest measuring 4 mm. Please refer to the chart below for recommended follow- up. -follow Fleischner criteria recommendations for follow-up of incidental CT nodules as outpatient Full Code Status [place] [phone] Subjective Patient returns from EGD. He is tired. but awake and alert and responsive to questions. no acute distress. no shortness of breath. on room air. no chest pain. abdominal discomfort has not increased. Physical Exam Vital Signs (Past 24 Hours): Last Vital Signs Temp 36.6 C 10/26/18 14:39 Pulse 87 10/26/18 14:39 Resp 18 10/26/18 14:39 BP 133/89 10/26/18 14:39 Pulse Ox 92 10/26/18 14:39 Constitutional: WD/WN, vitals as above Eyes: PERRL, conjunctivae normal, anicteric sclerae EOM intact bilaterally ENMT: external ear and nose normal, oropharynx normal Neck: trachea midline, no thyromegaly Respiratory: normal respiratory effort, lungs clear to auscultation Cardiovascular: RRR, no murmur, no edema Gastrointestinal (Abdomen): Inspection/Auscultation: normal bowel sounds Percussion/Palpation: + abdomen tender (tenderness of right upper quadrant on palpation) and abdomen soft Musculoskeletal: no cyanosis or clubbing, extremities motor strength 5/5 Head/Neck/Chest: normocephalic and head atraumatic Neurologic: PERRL, EOMI, accommodation nl, no face palsy, no dysarthria CN's II-XI intact bilaterally Psychiatric: A+Ox3, euthymic affect
--- NOTE | 2018-10-26 15:53 | Surgery Progress Note ---
Date of Service October 26, 2018 Assessment & Plan (1) Duodenal ulcer due to nonsteroidal anti-inflammatory drug (NSAID): 48 yr old man with duodenal ulcer with significant inflammation seen on CT but no perforation. EGD today showed a nonbleeding ulcer in the duodenal bulb along with gastritis. Biopsies taken in the stomach. Vitals stable, afebrile, abdomen is soft but tender in the RUQ. No peritonitis or rigidity. S/p EGD with biopsy today. Plan: Continue IV Protonix drip Continue clear liquids, advised to take slow. Stop if severe pain. Continue IV Zofran prn nausea Continue pain management as needed OOB to chair and ambulate continue medical management No surgical intervention required at this time. Will follow along given risk of perforation Dr. Maza was present during my examination and agrees with above. Subjective pain mildly better than yesterday pain slightly increases with liquids no nausea or vomiting went down for EGD today Physical Exam Vital Signs (Past 24 Hours): Last Vital Signs Temp 36.6 C 10/26/18 14:39 Pulse 87 10/26/18 14:39 Resp 18 10/26/18 14:39 BP 133/89 10/26/18 14:39 Pulse Ox 92 10/26/18 14:39 Constitutional: WD/WN, vitals as above + obese; no acute distress and not ill appearing Respiratory: no respiratory distress, no labored breathing, no retractions and does not use accessory muscles Gastrointestinal (Abdomen): Inspection/Auscultation: abdomen not distended Percussion/Palpation: + abdomen tender (RUQ on mild palpation) and abdomen soft; no guarding and abdomen not rigid Skin: no rashes, warm and dry no jaundice Psychiatric: A+Ox3, euthymic affect Results & Data Laboratory Results 10/26/18 10/26/18 Range/Units 05:53 05:53 WBC 8.33 (4.8-10.8) K/uL RBC 4.50 L (4.7-6.1) M/uL Hgb 13.2 L (14.0-18.0) g/dL Hct 38.0 L (42-52) % MCV 84.4 (80-100) fL MCH 29.3 (25-34) pg MCHC 34.7 (32-36) g/dL RDW Std Deviation 43.3 (36.4-46.3) fL RDW Coeff of Thea 14.2 (11.5-14.5) % Plt Count 299 (130-400) K/uL MPV 10.7 H (7.4-10.4) fL Immature Gran % (Auto) 0.4 % Neut % (Auto) 55.8 % Lymph % (Auto) 32.5 % Gre[place] % (Auto) 6.8 % Eos % (Auto) 4.3 % Baso % (Auto) 0.2 % Immature Gran # (Auto) 0.03 H (0.00-0.02) K/uL Neut # (Auto) 4.64 (1.4-6.5) K/uL Lymph # (Auto) 2.71 (1.2-3.4) K/uL Gregg # (Auto) 0.57 (0.11-0.59) K/uL Eos # (Auto) 0.36 (0-0.5) K/uL Baso # (Auto) 0.02 (0-0.2) K/uL Sodium 137 (136-145) mmol/L Potassium 3.6 (3.5-5.1) mmol/L Chloride 104 (98-107) mmol/L Carbon Dioxide 28 (21-32) mmol/L Anion Gap 5.0 (3-11) BUN 12 (7-18) mg/dl Creatinine 0.99 (0.6-1.4) mg/dl Est Cr Clr Drug Dosing 116.2 ml/min Est GFR ( Amer) 102.5 Est GFR (Non-Af Amer) 88.4 BUN/Creatinine Ratio 11.8 (10-20) Glucose 101 H (70-99) mg/dl Calcium 8.2 L (8.5-10.1) mg/dl Total Bilirubin 0.6 (0.2-1) mg/dl AST 33 (15-37) U/L ALT 65 (12-78) U/L Alkaline Phosphatase 56 (45-117) U/L Total Protein 6.9 (6.4-8.2) gm/dl Albumin 3.5 (3.4-5.0) gm/dl Globulin 3.4 (2.5-4.0) gm/dl Albumin/Globulin Ratio 1.0 (0.9-2)
[2018-10-26] MEDS: SUCRALFATE 1 GM/10 ML UDC PO SCH ×2 (16:57→20:25)
[2018-10-26] MEDS: HYDROmorphone INJ 0.5 MG/0.5 ML SYR IV PRN ×2 (17:32→23:48)
[2018-10-26] MEDS: PANTOprazole 40 MG in SYRINGE 0 ML IV SCH (20:25)
[2018-10-26 21:34] LABS: Potassium 3.6 mmol/L (3.5-5.1)
[2018-10-26 21:35] LABS: Magnesium 2.1 mg/dl (1.8-2.4)
[2018-10-26] MEDS ORDERED: POTASSIUM CHLORIDE 20 MEQ TABCR PO STA (21:49)
[2018-10-26] MEDS: ZOLPIDEM TARTRATE 5 MG TAB PO PRN (22:24)
[2018-10-27] MEDS: HYDROmorphone INJ 0.5 MG/0.5 ML SYR IV PRN (07:48)
[2018-10-27] MEDS: SUCRALFATE 1 GM/10 ML UDC PO SCH ×4 (07:48→19:49)
[2018-10-27 08:34] LABS: Basophils # (auto) 0.03 K/uL (0-0.2); Basophils % (auto) 0.4 %; Eosinophils # (auto) 0.17 K/uL (0-0.5); Eosinophils % (auto) 2.4 %; Hematocrit (blood only) 39.2 % (42-52); Hemoglobin 13.6 g/dL (14.0-18.0); Immature Granulocytes # (auto) 0.03 K/uL (0.00-0.02); Immature Granulocytes % (auto) 0.4 %; Lymphocytes # (auto) 2.27 K/uL (1.2-3.4); Lymphocytes % (auto) 32.3 %; Mean Corpuscular Volume 83.8 fL (80-100); Mean Platelet Volume 10.1 fL (7.4-10.4); Monocytes # (auto) 0.46 K/uL (0.11-0.59); Monocytes % (auto) 6.5 %; Neutrophils # (auto) 4.07 K/uL (1.4-6.5); Platelet Count 276 K/uL (130-400); RDW Coefficient of Variation 13.7 % (11.5-14.5); RDW Standard Deviation 41.5 fL (36.4-46.3); Red Blood Count 4.68 M/uL (4.7-6.1); White Blood Count 7.03 K/uL (4.8-10.8)
[2018-10-27 09:04] LABS: Albumin Level 3.7 gm/dl (3.4-5.0); BUN Creatinine Ratio 9.5 (10-20); Bilirubin,Total 0.6 mg/dl (0.2-1); Calcium 8.8 mg/dl (8.5-10.1); Creatinine Clr Calc Pharmacy 108.3 ml/min; Est GFR (African American) 94.4; Est GFR (Non-African American) 81.4; Globulin 3.7 gm/dl (2.5-4.0); Total Protein 7.4 gm/dl (6.4-8.2)
[2018-10-27 09:16] LABS: Mean Corpuscular Hgb Conc 34.7 g/dL (32-36)
[2018-10-27 09:36] LABS: Potassium 3.6 mmol/L (3.5-5.1)
--- NOTE | 2018-10-27 09:44 | Gastroenterology Progress Note ---
Date of Service October 27, 2018 Assessment & Plan (1) PUD (peptic ulcer disease): Pt is a 48 y/o male w epigastric, RUQ abd pain, hx of NSAIDs uses; found to have duodenal bulb ulcer w/o abscess or perforation at this time on CT scan. EGD on 10/26:showed normal esophagus, gastritis (bx pending), one non bleeding deeply cratered duodenal ulcer w surrounding inflammation likely NSAIDs related. Normal second portion of duodenum. - CL diet today - Continue to monitor for s/s of perforation, acute abdomen; Appreciate Surgery following. - PPI IV BID - Carafate 1g QID susp - Repeat EGD in 2 months time - Avoid NSAIDs, tobacco, ETOH Supervising Physician Co-Signing Physician Notes I performed a history and physical examination of the patient, including specifically on physical exam - soft, nontender abdomen. I have discussed the patient's management with Vi. Please refer to the nurse practitioner's note for the documented findings and plan of care. Doing well today, tolerated clear liquids. Advance diet now as tolerated. PPI as instructed. The ulcer seems stable from GI stand point. Recall GI if needed. Subjective Pt said abd pain is improved. Did have BM yesterday, w/o black or tarry stools. Is passing flatus. Tolerating CL diet w/o N/V. No CP, SOB Labs showed stable blood ct. Physical Exam Vital Signs (Past 24 Hours): Last Vital Signs Temp 36.7 C 10/27/18 07:58 Pulse 75 10/27/18 07:58 Resp 18 10/27/18 07:58 BP 154/71 H 10/27/18 07:58 Pulse Ox 95 10/27/18 07:58 Constitutional: WD/WN, vitals as above well groomed, cooperative and comfortable Eyes: PERRL, conjunctivae normal, anicteric sclerae ENMT: external ear and nose normal, oropharynx normal Respiratory: normal respiratory effort, lungs clear to auscultation Cardiovascular: RRR, no murmur, no edema Gastrointestinal (Abdomen): Inspection/Auscultation: normal bowel sounds Percussion/Palpation: + abdomen tender (epigastric ) and abdomen soft Skin: no rashes, warm and dry no jaundice Neurologic: Motor/Sensory: no asterixis Psychiatric: A+Ox3, euthymic affect Lymphatic: no lymphedema Results & Data Laboratory Results Laboratory Results - last 72 hr 10/25/18 10/25/18 10/25/18 11:50 12:05 12:05 WBC 8.50 RBC 5.01 Hgb 14.9 Hct 42.1 MCV 84.0 MCH 29.7 MCHC 35.4 RDW Std Deviation 42.8 RDW Coeff of Thea 14.0 Plt Count 282 MPV 10.5 H Immature Gran % (Auto) 0.4 Neut % (Auto) 60.4 Lymph % (Auto) 27.5 Schley % (Auto) 7.4 Eos % (Auto) 3.8 Baso % (Auto) 0.5 Immature Gran # (Auto) 0.03 H Neut # (Auto) 5.14 Lymph # (Auto) 2.34 Schley # (Auto) 0.63 H Eos # (Auto) 0.32 Baso # (Auto) 0.04 Sodium 140 Potassium 3.9 Chloride 106 Carbon Dioxide 28 Anion Gap 6.0 BUN 10 Creatinine 0.88 Est Cr Clr Drug Dosing 131.6 Est GFR ( Amer) 116.1 Est GFR (Non-Af Amer) 100.2 BUN/Creatinine Ratio 11.2 Glucose 99 Calcium 8.8 Magnesium Total Bilirubin 0.3 AST 31 ALT 75 Alkaline Phosphatase 63 Total Protein 8.0 Albumin 3.9 Globulin 4.1 H Albumin/Globulin Ratio 1.0 Lipase 150 Urine Color Yellow Urine Appearance Clear Urine pH 6.0 Ur Specific [place] 1.020 Urine Protein Negative Urine Glucose (UA) Negative Urine Ketones Negative Urine Blood Negative Urine Nitrite Negative Urine Bilirubin Negative Urine Urobilinogen Negative Ur Leukocyte Esterase Negative 10/26/18 10/26/18 10/26/18 05:53 05:53 21:16 WBC 8.33 RBC 4.50 L Hgb 13.2 L Hct 38.0 L MCV 84.4 MCH 29.3 MCHC 34.7 RDW Std Deviation 43.3 RDW Coeff of Thea 14.2 Plt Count 299 MPV 10.7 H Immature Gran % (Auto) 0.4 Neut % (Auto) 55.8 Lymph % (Auto) 32.5 Schley % (Auto) 6.8 Eos % (Auto) 4.3 Baso % (Auto) 0.2 Immature Gran # (Auto) 0.03 H Neut # (Auto) 4.64 Lymph # (Auto) 2.71 Schley # (Auto) 0.57 Eos # (Auto) 0.36 Baso # (Auto) 0.02 Sodium 137 Potassium 3.6 3.6 Chloride 104 Carbon Dioxide 28 Anion Gap 5.0 BUN 12 Creatinine 0.99 Est Cr Clr Drug Dosing 116.2 Est GFR ( Amer) 102.5 Est GFR (Non-Af Amer) 88.4 BUN/Creatinine Ratio 11.8 Glucose 101 H Calcium 8.2 L Magnesium 2.1 Total Bilirubin 0.6 AST 33 ALT 65 Alkaline Phosphatase 56 Total Protein 6.9 Albumin 3.5 Globulin 3.4 Albumin/Globulin Ratio 1.0 Lipase Urine Color Urine Appearance Urine pH Ur Specific [place] Urine Protein Urine Glucose (UA) Urine Ketones Urine Blood Urine Nitrite Urine Bilirubin Urine Urobilinogen Ur Leukocyte Esterase 10/27/18 10/27/18 10/27/18 08:21 08:24 09:14 WBC 7.03 RBC 4.68 L Hgb 13.6 L Hct 39.2 L MCV 83.8 MCH 29.1 MCHC 34.7 RDW Std Deviation 41.5 RDW Coeff of Thea 13.7 Plt Count 276 MPV 10.1 Immature Gran % (Auto) 0.4 Neut % (Auto) 58.0 Lymph % (Auto) 32.3 Schley % (Auto) 6.5 Eos % (Auto) 2.4 Baso % (Auto) 0.4 Immature Gran # (Auto) 0.03 H Neut # (Auto) 4.07 Lymph # (Auto) 2.27 Schley # (Auto) 0.46 Eos # (Auto) 0.17 Baso # (Auto) 0.03 Sodium 140 Potassium 3.6 Chloride 107 Carbon Dioxide 28 Anion Gap 5.0 BUN 10 Creatinine 1.06 Est Cr Clr Drug Dosing 108.3 Est GFR ( Amer) 94.4 Est GFR (Non-Af Amer) 81.4 BUN/Creatinine Ratio 9.5 L Glucose 106 H Calcium 8.8 Magnesium Total Bilirubin 0.6 AST 32 ALT 70 Alkaline Phosphatase 58 Total Protein 7.4 Albumin 3.7 Globulin 3.7 Albumin/Globulin Ratio 1.0 Lipase Urine Color Urine Appearance Urine pH Ur Specific [place] Urine Protein Urine Glucose (UA) Urine Ketones Urine Blood Urine Nitrite Urine Bilirubin Urine Urobilinogen Ur Leukocyte Esterase
[2018-10-27] MEDS: PANTOprazole 40 MG in SYRINGE 0 ML IV SCH ×2 (10:03→19:50)
--- NOTE | 2018-10-27 10:52 | Surgery Progress Note ---
Date of Service October 27, 2018 Assessment & Plan (1) Duodenal ulcer due to nonsteroidal anti-inflammatory drug (NSAID): 48 yr old man with duodenal ulcer with significant inflammation seen on CT but no perforation. EGD today showed a nonbleeding ulcer in the duodenal bulb along with gastritis. Biopsies taken in the stomach. Vitals stable, afebrile, abdomen is soft but tender in the RUQ (improved compared to yesterday). No peritonitis or rigidity. S/p EGD with biopsy today. H&H stable 13.6/39.2 Plan: Continue IV Protonix BID, Carafate Diet advancement per GI Continue IV Zofran prn nausea Continue pain management as needed OOB to chair and ambulate hallway recommended continue medical management No surgical intervention required at this time. Will follow along given risk of perforation Subjective feeling better today abdominal pain improved, not as constant and now intermittent. Rating 4/10. tolerating clear liquids hungry passing flatus Physical Exam Vital Signs (Past 24 Hours): Last Vital Signs Temp 36.7 C 10/27/18 07:58 Pulse 75 10/27/18 07:58 Resp 18 10/27/18 07:58 BP 154/71 H 10/27/18 07:58 Pulse Ox 95 10/27/18 07:58 Constitutional: WD/WN, vitals as above no acute distress and not ill appearing Respiratory: normal respiratory effort; no respiratory distress Gastrointestinal (Abdomen): Inspection/Auscultation: abdomen normal to inspection; abdomen not distended Percussion/Palpation: + abdomen tender (RUQ however vastly improved, pain on deep palpation) and abdomen soft; no guarding and abdomen not rigid Skin: no rashes, warm and dry Psychiatric: A+Ox3, euthymic affect Results & Data Laboratory Results 10/27/18 10/27/18 10/27/18 Range/Units 09:14 08:24 08:21 WBC 7.03 (4.8-10.8) K/uL RBC 4.68 L (4.7-6.1) M/uL Hgb 13.6 L (14.0-18.0) g/dL Hct 39.2 L (42-52) % MCV 83.8 (80-100) fL MCH 29.1 (25-34) pg MCHC 34.7 (32-36) g/dL RDW Std Deviation 41.5 (36.4-46.3) fL RDW Coeff of Thea 13.7 (11.5-14.5) % Plt Count 276 (130-400) K/uL MPV 10.1 (7.4-10.4) fL Immature Gran % (Auto) 0.4 % Neut % (Auto) 58.0 % Lymph % (Auto) 32.3 % Gila % (Auto) 6.5 % Eos % (Auto) 2.4 % Baso % (Auto) 0.4 % Immature Gran # (Auto) 0.03 H (0.00-0.02) K/uL Neut # (Auto) 4.07 (1.4-6.5) K/uL Lymph # (Auto) 2.27 (1.2-3.4) K/uL Gila # (Auto) 0.46 (0.11-0.59) K/uL Eos # (Auto) 0.17 (0-0.5) K/uL Baso # (Auto) 0.03 (0-0.2) K/uL Sodium 140 (136-145) mmol/L Potassium 3.6 (3.5-5.1) mmol/L Chloride 107 (98-107) mmol/L Carbon Dioxide 28 (21-32) mmol/L Anion Gap 5.0 (3-11) BUN 10 (7-18) mg/dl Creatinine 1.06 (0.6-1.4) mg/dl Est Cr Clr Drug Dosing 108.3 ml/min Est GFR ( Amer) 94.4 Est GFR (Non-Af Amer) 81.4 BUN/Creatinine Ratio 9.5 L (10-20) Glucose 106 H (70-99) mg/dl Calcium 8.8 (8.5-10.1) mg/dl Magnesium (1.8-2.4) mg/dl Total Bilirubin 0.6 (0.2-1) mg/dl AST 32 (15-37) U/L ALT 70 (12-78) U/L Alkaline Phosphatase 58 (45-117) U/L Total Protein 7.4 (6.4-8.2) gm/dl Albumin 3.7 (3.4-5.0) gm/dl Globulin 3.7 (2.5-4.0) gm/dl Albumin/Globulin Ratio 1.0 (0.9-2) 10/26/ Range/Units 21:16 WBC (4.8-10.8) K/uL RBC (4.7-6.1) M/uL Hgb (14.0-18.0) g/dL Hct (42-52) % MCV (80-100) fL MCH (25-34) pg MCHC (32-36) g/dL RDW Std Deviation (36.4-46.3) fL RDW Coeff of Thea (11.5-14.5) % Plt Count (130-400) K/uL MPV (7.4-10.4) fL Immature Gran % (Auto) % Neut % (Auto) % Lymph % (Auto) % Gila % (Auto) % Eos % (Auto) % Baso % (Auto) % Immature Gran # (Auto) (0.00-0.02) K/uL Neut # (Auto) (1.4-6.5) K/uL Lymph # (Auto) (1.2-3.4) K/uL Gila # (Auto) (0.11-0.59) K/uL Eos # (Auto) (0-0.5) K/uL Baso # (Auto) (0-0.2) K/uL Sodium (136-145) mmol/L Potassium 3.6 (3.5-5.1) mmol/L Chloride (98-107) mmol/L Carbon Dioxide (21-32) mmol/L Anion Gap (3-11) BUN (7-18) mg/dl Creatinine (0.6-1.4) mg/dl Est Cr Clr Drug Dosing ml/min Est GFR ( Amer) Est GFR (Non-Af Amer) BUN/Creatinine Ratio (10-20) Glucose (70-99) mg/dl Calcium (8.5-10.1) mg/dl Magnesium 2.1 (1.8-2.4) mg/dl Total Bilirubin (0.2-1) mg/dl AST (15-37) U/L ALT (12-78) U/L Alkaline Phosphatase (45-117) U/L Total Protein (6.4-8.2) gm/dl Albumin (3.4-5.0) gm/dl Globulin (2.5-4.0) gm/dl Albumin/Globulin Ratio (0.9-2)
--- NOTE | 2018-10-27 15:58 | Hospitalist Progress Note ---
Date of Service October 27, 2018 Assessment & Plan (1) Duodenal ulcer: Dudodenal ulcer with high risk for perforation -CT abdomen "Focal thickening and mild fat stranding surrounding the duodenal bulb. There is also a 1 cm focal ulceration along the medial wall of the duodenal bulb. No evidence for perforation or abscess at this time. Therefore, these findings are likely secondary to peptic ulcer disease with suggestion of impending perforation" -patient had EGD performed on 10/26/18 The examined esophagus was normal. Mild inflammation characterized by erythema was found in the stomach. Biopsies were taken with a cold forceps for Helicobacter pylori testing. One non-bleeding deeply cratered duodenal ulcer with no stigmata of bleeding was found in the duodenal bulb. There is extensive surrounding edema and inflammation. The lesion was 12 mm in largest dimension. The second portion of the duodenum was normal. Gastroenterology Impression: - of Normal esophagus. - Gastritis. Biopsied. - One non-bleeding deeply cratered duodenal ulcer with surrounding inflammation. Likely NSAIDs related. -Normal second portion of the duodenum. -continues to observed on hospital telemetry for close monitoring in case of duodenal ulcer perforation as per gastroneterology service -avoid NSAIDs currently on clear liquid diet and plan to advance diet on 10/28/18 if diet tolerated continue IV protonics for now and possibly plan to transition to oral pantoprazole by 10/28/18; subsequently will need oral pantoprazole BID for 2 months continue Carafate Patient will need Repeat upper endoscopy in 2 months to check healing with [facility] gastroenterology clinic service in [facility] History of hypertension -hold home medications of HCTZ and lisinopril for now -hold home medication of atorvastatin Incidental pulmonary nodules -as seen on admission CT abdomen scan there are 2 subcentimeter indeterminate pulmonary nodule within the lung bases with the largest measuring 4 mm -follow Fleischner criteria recommendations for follow-up of incidental CT nodules as outpatient. Patient quite tobacco use 10 years ago but reports of being a daily smoker for a span of 5 to 6 years -as per the the criteria, patient is likley somewhat higher risk and may benefit from optional Chest CT scan at 12 months but this should be decided on outpatient basis with his primary care doctor Multiple nodules size: <6 mm * Low risk patients: no routine follow-up * high risk patients: optional CT at 12 months Full Code Status [place] [phone] Subjective Patient appears more comfortable today. Patient able to eat. Patient reports making bowel movement and did not see blood in the stool. Patient reports the abdominal pain is better. No vomiting. Continues to observed on hospital telemetry for close monitoring in case of duodenal ulcer perforation as per gastroneterology service Physical Exam Vital Signs (Past 24 Hours): Last Vital Signs Temp 36.4 C L 10/27/18 15:47 Pulse 71 10/27/18 15:47 Resp 20 10/27/18 15:47 BP 123/74 10/27/18 15:47 Pulse Ox 94 10/27/18 15:47 Constitutional: WD/WN, vitals as above Eyes: PERRL, conjunctivae normal, anicteric sclerae EOM intact bilaterally ENMT: external ear and nose normal, oropharynx normal Neck: trachea midline, no thyromegaly Respiratory: normal respiratory effort, lungs clear to auscultation Cardiovascular: RRR, no murmur, no edema Gastrointestinal (Abdomen): normal bowel sounds, soft, nontender, no hepatosplenomegaly Inspection/Auscultation: normal bowel sounds Musculoskeletal: no cyanosis or clubbing, extremities motor strength 5/5 Head/Neck/Chest: normocephalic and head atraumatic Neurologic: PERRL, EOMI, accommodation nl, no face palsy, no dysarthria CN's II-XI intact bilaterally Psychiatric: A+Ox3, euthymic affect
[2018-10-27] MEDS: ZOLPIDEM TARTRATE 5 MG TAB PO PRN (21:26)
[2018-10-28] MEDS: SUCRALFATE 1 GM/10 ML UDC PO SCH ×2 (07:42→12:12)
[2018-10-28 07:52] VITALS: PULSE 73; TEMP 97.5; O2SAT 97
[2018-10-28 08:57] LABS: Basophils # (auto) 0.03 K/uL (0-0.2); Basophils % (auto) 0.3 %; Eosinophils # (auto) 0.24 K/uL (0-0.5); Eosinophils % (auto) 2.7 %; Hematocrit (blood only) 41.8 % (42-52); Hemoglobin 14.6 g/dL (14.0-18.0); Immature Granulocytes # (auto) 0.02 K/uL (0.00-0.02); Immature Granulocytes % (auto) 0.2 %; Lymphocytes # (auto) 2.32 K/uL (1.2-3.4); Lymphocytes % (auto) 26.4 %; Mean Corpuscular Volume 83.9 fL (80-100); Mean Platelet Volume 10.1 fL (7.4-10.4); Monocytes # (auto) 0.52 K/uL (0.11-0.59); Monocytes % (auto) 5.9 %; Neutrophils # (auto) 5.65 K/uL (1.4-6.5); Neutrophils % (auto) 64.5 %; Platelet Count 310 K/uL (130-400); RDW Coefficient of Variation 13.7 % (11.5-14.5); RDW Standard Deviation 41.7 fL (36.4-46.3); Red Blood Count 4.98 M/uL (4.7-6.1); White Blood Count 8.78 K/uL (4.8-10.8)
[2018-10-28 09:00] LABS: Mean Corpuscular Hgb Conc 34.9 g/dL (32-36)
[2018-10-28] MEDS: PANTOprazole 40 MG in SYRINGE 0 ML IV SCH (09:11)
[2018-10-28 09:14] LABS: BUN Creatinine Ratio 8.4 (10-20); Calcium 9.1 mg/dl (8.5-10.1); Creatinine Clr Calc Pharmacy 97.2 ml/min; Est GFR (African American) 83.8; Est GFR (Non-African American) 72.3; Potassium 3.8 mmol/L (3.5-5.1)
--- NOTE | 2018-10-28 11:15 | Surgery Progress Note ---
Date of Service October 28, 2018 Assessment & Plan (1) Duodenal ulcer due to nonsteroidal anti-inflammatory drug (NSAID): 48 yr old man with duodenal ulcer with significant inflammation seen on CT but no perforation. EGD showed a nonbleeding ulcer in the duodenal bulb along with gastritis. Biopsies taken in the stomach. Vitals stable, afebrile, abdomen is soft but tender in the RUQ (improved compared to yesterday). No peritonitis or rigidity. H&H stable 14.6/41/8 (13.6/39.2 yesterday) Plan: No acute surgical abdomen PPI BID PO , Carafate PO as per GI recommendations avoid NSAIDs, aspirin, alcohol, smoking, caffeine/soda, acid fruits, tomato based products, spicy foods Follow-up GI for repeat scope Our services signing off, please call with questions or concerns Dr. Maza was present during my examination, agrees with above Subjective feeling good little to no pain tolerated full liquids and now having low fiber diet ready to go home no n/v Physical Exam Vital Signs (Past 24 Hours): Last Vital Signs Temp 36.4 C L 10/28/18 07:50 Pulse 73 10/28/18 07:50 Resp 17 10/28/18 07:50 BP 97/62 L 10/28/18 07:50 Pulse Ox 97 10/28/18 07:50 Constitutional: WD/WN, vitals as above + obese; no acute distress and not ill appearing Respiratory: normal respiratory effort; no respiratory distress Gastrointestinal (Abdomen): Inspection/Auscultation: abdomen not distended Percussion/Palpation: + abdomen tender (RUQ on deep palpation) and abdomen soft; no guarding and abdomen not rigid Skin: no rashes, warm and dry Psychiatric: A+Ox3, euthymic affect Results & Data Laboratory Results 10/28/18 10/28/18 Range/Units 08:44 08:44 WBC 8.78 (4.8-10.8) K/uL RBC 4.98 (4.7-6.1) M/uL Hgb 14.6 (14.0-18.0) g/dL Hct 41.8 L (42-52) % MCV 83.9 (80-100) fL MCH 29.3 (25-34) pg MCHC 34.9 (32-36) g/dL RDW Std Deviation 41.7 (36.4-46.3) fL RDW Coeff of Thea 13.7 (11.5-14.5) % Plt Count 310 (130-400) K/uL MPV 10.1 (7.4-10.4) fL Immature Gran % (Auto) 0.2 % Neut % (Auto) 64.5 % Lymph % (Auto) 26.4 % Villalba % (Auto) 5.9 % Eos % (Auto) 2.7 % Baso % (Auto) 0.3 % Immature Gran # (Auto) 0.02 (0.00-0.02) K/uL Neut # (Auto) 5.65 (1.4-6.5) K/uL Lymph # (Auto) 2.32 (1.2-3.4) K/uL Villalba # (Auto) 0.52 (0.11-0.59) K/uL Eos # (Auto) 0.24 (0-0.5) K/uL Baso # (Auto) 0.03 (0-0.2) K/uL Sodium 141 (136-145) mmol/L Potassium 3.8 (3.5-5.1) mmol/L Chloride 107 (98-107) mmol/L Carbon Dioxide 29 (21-32) mmol/L Anion Gap 5.0 (3-11) BUN 10 (7-18) mg/dl Creatinine 1.17 (0.6-1.4) mg/dl Est Cr Clr Drug Dosing 97.2 ml/min Est GFR ( Amer) 83.8 Est GFR (Non-Af Amer) 72.3 BUN/Creatinine Ratio 8.4 L (10-20) Glucose 136 H (70-99) mg/dl Calcium 9.1 (8.5-10.1) mg/dl
--- NOTE | 2018-10-28 12:00 | Hospitalist Progress Note ---
Date of Service October 28, 2018 Assessment & Plan (1) Duodenal ulcer: Present on admission with abdominal pain Mostly due to NSAIDs CT abdomen/pelvis showed Focal thickening and mild fat stranding surrounding the duodenal bulb and a 1 cm focal ulceration along the medial wall of the duodenal bulb. No evidence for perforation or abscess at this time. EGD performed on 10/26/18 showed esophagus was normal. Mild inflammation characterized by erythema was found in the stomach. One non-bleeding deeply cratered duodenal ulcer with no stigmata of bleeding was found in the duodenal bulb. There is extensive surrounding edema and inflammation. The lesion was 12 mm in largest dimension. The second portion of the duodenum was normal. Tolerated diet Case discussed with Gastro team recommended to continue PPI BID, No NSAID and Repeat EGD in 2 months Avoid aspirin, alcohol, smoking, caffeine/soda, acid fruits, tomato based products, spicy foods Continue Carafate Clinically stable History of hypertension BP in low side HCTZ and lisinopril were on hold during hospital setting Continue monitor Incidental pulmonary nodules CT abdomen/pelvis showed 2 subcentimeter indeterminate pulmonary nodule within the lung bases with the largest measuring 4 mm. Will need outpatient follow up with CT chest Full Code Status Disposition Will discharge home today Subjective Pt was seen and examined Lying in bed with no distress Pt said that his abdominal pain improves He said that he tolerates his diet He said that he had a normal bowel movement Denies any chest pain, palpitation, dizziness, N/V and SOB Physical Exam Vital Signs (Past 24 Hours): Last Vital Signs Temp 36.4 C L 10/28/18 07:50 Pulse 73 10/28/18 07:50 Resp 17 10/28/18 07:50 BP 97/62 L 10/28/18 07:50 Pulse Ox 97 10/28/18 07:50 Physical Exam: General- No acute distress Head- atraumatic Eyes- PERRL, EOMI, ENT- oropharynx clear Neck- supple, no JVD Lungs- clear to auscultation Heart- regular rhythm; no murmur Abdomen- normal bowel sounds, mild tender with deep palpation right side abdomen Extremities- no calf tenderness Neuro- alert, oriented x 3; PERRL, EOMI; no facial palsy; no dysarthria Skin- warm & dry
[2018-10-28 12:45] VITALS: BP 125/80
--- NOTE | 2018-10-29 08:19 | Discharge Summary ---
Date of Service October 28, 2018 Admission HPI Per Admitting Provider 48 year old who has been having abdominal pain x 2 weeks. Reports that he tried to relieve pain with 4 tablets of ibuprofen BID for the past 1 week without significant relief. Pain localizes to right side of the abdomen and right upper quadrant. Patient reports nausea but no vomiting. Patient reports regular bowel movements and denies blood in the stool. CT abdomen "Focal thickening and mild fat stranding surrounding the duodenal bulb. There is also a 1 cm focal ulceration along the medial wall of the duodenal bulb. No evidence for perforation or abscess at this time. Therefore, these findings are likely secondary to peptic ulcer disease with suggestion of impending perforation" Patient seen and examined by hospitalist and is hemodynamically stable and not in acute distress. Patient reports needing pain control. Denies fever. No shortness of breath. No chest pain. No back pain Reports weekend alcohol use. Denies active smoking Denies history of allergies Family History: denies family history of medical problems Admission Exam Per Admitting Provider Constitutional: WD/WN, vitals as above Eyes: PERRL, conjunctivae normal, anicteric sclerae EOM intact bilaterally ENMT: external ear and nose normal, oropharynx normal Neck: trachea midline, no thyromegaly Respiratory: normal respiratory effort, lungs clear to auscultation Cardiovascular: RRR, no murmur, no edema Gastrointestinal Inspection/Auscultation: normal bowel sounds Percussion/Palpation: + abdomen tender (tenderness of right upper quadrant on palpation) and abdomen soft Musculoskeletal: no cyanosis or clubbing, extremities motor strength 5/5 Head/Neck/Chest: normocephalic and head atraumatic Neurologic: PERRL, EOMI, accommodation nl, no face palsy, no dysarthria CN's II-XI intact bilaterally Psychiatric: A+Ox3, euthymic affect Principal Diagnosis Duodenal ulcer Discharge Exam General- No acute distress Head- atraumatic Eyes- PERRL, EOMI, ENT- oropharynx clear Neck- supple, no JVD Lungs- clear to auscultation Heart- regular rhythm; no murmur Abdomen- normal bowel sounds, mild tender with deep palpation right side abdomen Extremities- no calf tenderness Neuro- alert, oriented x 3; PERRL, EOMI; no facial palsy; no dysarthria Skin- warm & dry Discharge Data Allergies Allergy/AdvReac Type Severity Reaction Status Date / Time No Known Allergies Allergy Mild Unverified 10/25/18 12:19 Consultations 10/25/18 16:08 Consult General Surgery Routine 10/25/18 17:17 Consult Gastroenterology Routine Procedures Performed Operation Date: 10/26/18 09:00 Actual Procedures p EGD Biopsy Cytology - Nisha Cesar MD Ordered Studies 10/25/18 12:06 US gallbladder Stat 10/25/18 14:57 CT abd pelvis IV con only Stat ABDOMEN AND PELVIS CT WITH IV CONTRAST CT DOSE: 1551.20 mGy.cm HISTORY: sever ruq pain TECHNIQUE: Multiaxial CT images of the abdomen and pelvis were performed following the use of intravenous contrast. A dose lowering technique was utilized adhering to the principles of ALARA. COMPARISON STUDY: None. FINDINGS: A 4 mm subpleural nodule the right middle lobe on image 16. Calcified granuloma within the right lung base. There is a 4 mm nodule within the left lower lobe on image 10. No pneumoperitoneum. No pneumatosis. No suspicious lytic or blastic osseous lesions. Tiny fat-containing umbilical hernia. Prominent distal esophageal lymph node measuring 11 mm. Hepatic steatosis. The gallbladder, pancreas, spleen, and adrenal glands are unremarkable. The kidneys enhance normally. There are few punctate bilateral renal calculi. No ureteral calculi. No hydronephrosis. Normal bladder. Small fat-containing bilateral inguinal hernias. No retroperitoneal lymphadenopathy. Focal thickening and mild fat stranding surrounding the duodenal bulb. There are few adjacent mildly enlarged lymph nodes in the mesentery with the largest measuring 2.2 x 1.4 cm. These may be reactive to the inflammatory change. Best seen on image 158 there is a 1 cm focal ulceration along the medial wall the duodenal bulb. No evidence for perforation or abscess at this time. Therefore, these findings are likely secondary to peptic ulcer disease with suggestion of impending perforation. Normal appendix. No evidence for bowel obstruction. IMPRESSION: 1. Focal thickening and mild fat stranding surrounding the duodenal bulb. There is also a 1 cm focal ulceration along the medial wall of the duodenal bulb. No evidence for perforation or abscess at this time. Therefore, these findings are likely secondary to peptic ulcer disease with suggestion of impending perforation. Endoscopy is recommended to exclude the possibility of an underlying lesion. 2. A few mildly enlarged lymph nodes adjacent to the duodenum which may be reactive. 3. A single mildly enlarged distal periesophageal lymph node. This is of uncertain clinical significance. 4. Bilateral nephrolithiasis. No hydronephrosis. 5. Hepatic steatosis. 6. There are 2 subcentimeter indeterminate pulmonary nodule within the lung bases with the largest measuring 4 mm. Please refer to the chart below for recommended follow-up. Please refer to below summary of Fleischner criteria recommendations for follow- up of incidental CT nodules (Minerva Rockwell, Guidelines for management of small pulmonary nodules detected on CT scans: A statement from the Fleischner Society, Radiology 237: [phone].) SOLID NODULES Solitary nodule size: <6 mm * Low risk patients: no follow-up needed * high risk patients: optional CT at 12 months Solitary nodule size: 6-8 mm * Low risk patients: follow-up at 6-12 months, then consider further follow-up at 18-24 months * high risk patients: initial follow-up CT at 6-12 months and then at 18-24 months if no change Solitary nodule size: >8 mm * either low or high risk patients - consider follow-up CT at 3 months, and/or CT-PET, and/or biopsy Multiple nodules size: <6 mm * Low risk patients: no routine follow-up * high risk patients: optional CT at 12 months Multiple nodules size: 6-8 mm * Low risk patients: follow-up at 3-6 months, then consider further follow-up at 18-24 months * high risk patients: follow-up at 3-6 months, then at 18-24 months if no change Multiple nodules size: >8 mm * Low risk patients: follow-up at 3-6 months, then consider further follow-up at 18-24 months * high risk patients: follow-up at 3-6 months, then at 18-24 months if no change Note: newly detected indeterminate nodule in persons 35 years of age or older. * Low risk patients: minimal or absent history of smoking and/or other known risk factors * high risk patients: history of smoking or of other known risk factors (e.g. first degree relative with lung cancer, or exposure to asbestos, radon, uranium) * if a nodule up to 8 mm is partly solid or is ground glass further follow-up is required after 24 months to exclude possible slow growing adenocarcinoma ([facility]) SUBSOLID NODULES Solitary pure ground-glass nodule * nodule size <6 mm - no CT follow-up required * nodule size >=6 mm - follow-up CT at 6-12 months, then every 2 years until 5 years Solitary part-solid nodule * nodule size <6 mm - no CT follow-up required * nodule size >=6 mm - follow-up CT at 3-6 months. If unchanged, and solid component remains <6 mm, then annual follow-up for 5 years Multiple subsolid nodules * nodule size <6 mm - follow-up CT at 3-6 months, consider further follow-up at 2 and 4 years if stable * nodule size >=6 mm - follow-up CT at 3-6 months, subsequent management based on the most suspicious nodule(s) Electronically signed by: Juwan Whitman M.D. 10/25/2018 3:31 PM Dictated: 10/25/18 1522 Transcribed: 10/25/18 1522 US gallbladder CLINICAL HISTORY: Right upper quadrant abdominal pain. COMPARISON STUDY: No previous studies for comparison. FINDINGS: This exam is significantly compromised by suboptimal penetration. Hepatic echogenicity is increased. The liver is enlarged. The pancreas is obscured. No gallstones are identified. There is no biliary ductal dilatation although the common bile duct is partially obscured. Visualized portions measure 4 mm in caliber. There is no right hydronephrosis. IMPRESSION: 1. Exam compromised by suboptimal penetration. Obscured pancreas. 2. Fatty liver and hepatomegaly. 3. No gallstones or biliary ductal dilatation. Electronically signed by: David Peoples M.D. 10/25/2018 2:08 PM Dictated: 10/25/18 1407 Transcribed: 10/25/18 1407 Hospital Course (1) Duodenal ulcer: Present on admission with abdominal pain Mostly due to NSAIDs CT abdomen/pelvis showed Focal thickening and mild fat stranding surrounding the duodenal bulb and a 1 cm focal ulceration along the medial wall of the duodenal bulb. No evidence for perforation or abscess at this time. EGD performed on 10/26/18 showed esophagus was normal. Mild inflammation characterized by erythema was found in the stomach. One non-bleeding deeply cratered duodenal ulcer with no stigmata of bleeding was found in the duodenal bulb. There is extensive surrounding edema and inflammation. The lesion was 12 mm in largest dimension. The second portion of the duodenum was normal. Tolerated diet Case discussed with Gastro team recommended to continue PPI BID, No NSAID and Repeat EGD in 2 months Avoid aspirin, alcohol, smoking, caffeine/soda, acid fruits, tomato based products, spicy foods Continue Carafate Clinically stable History of hypertension BP in low side HCTZ and lisinopril were on hold during hospital setting Continue monitor Incidental pulmonary nodules CT abdomen/pelvis showed 2 subcentimeter indeterminate pulmonary nodule within the lung bases with the largest measuring 4 mm. Will need outpatient follow up with CT chest Full Code Status Disposition Will discharge home today Total Time Total Time Spent Total Time Spent (In Minutes): 35 minutes Total Time Includes: Examination of the Patient, Discharge Planning, Medication Reconciliation, Communication With Other Providers and Other Discharge Plan Discharge Items Patient Disposition: Home - Self-Care Reason For Visit: PEPTIC ULCER DISEASE Discharge Diagnosis: Duodenal ulcer Discharge Goals: Decrease discomfort, Improve disease control, Improve function and Increase independence Activity: Resume your previous activity Activity Comment: As tolerated Non-emergency contact: Primary Care Provider Call non-emergency contact if: you have any medication questions, your symptoms worsen and your temperature is above 101 Follow-up/Referrals: Kaylynn Bell MD [Primary Care Provider] - Diet: Low Sodium (2gm) Addtl Provider Instructions: Follow up with your primary care provider Dr. Bell on 11/02 @ 1:PM at the [facility] practice office Follow up with Gastroenterology to repeat EGD in 2 months. (Gastro office will call you for the follow up ) No NSAID for now such as Advil, Ibuprofen, Motrin, Naproxen, Aleve, Aspirin Avoid alcohol, smoking, caffeine/soda, acid fruits, tomato based products, spicy food Continue Pantoprazole twice a day for now Monitor blood pressure closely (If blood pressure remains low, please continue to hold blood pressure medications) Prescriptions: New sucralfate 100 mg/mL Suspension 1 gm PO ACHS Qty: 150 RF: 0 pantoprazole 40 mg tablet,delayed release (DR/EC) 40 mg PO BID 30 Days Qty: 60 RF: 0 Continued lisinopril 10 mg Tablet 10 mg PO DAILY RF: 0 atorvastatin [Lipitor] 20 mg Tablet 20 mg PO DAILY RF: 0 hydrochlorothiazide 12.5 mg Tablet 12.5 mg PO DAILY RF: 0 Stand-Alone Forms: [facility] Discharge Orders: Discharge Order (Routine); Ordered 10/28/18 Ordered By: Florence Lane Admission Data Admit Date/Time: 10/26/18 15:48 Attending Provider: Florence Lane Admit Provider: Osvaldo Quinteros Primary Care Provider: Kaylynn Bell Other Providers: Saumya Hager ; Bang Fox ; Osvaldo Quinteros Service: Telemetry Medical Other Interventions: Discharge Summary Assessment (RN) Last Done: 10/28/18 12:43 DC Date/Time DO NOT enter until pt leaves facility: 10/28/18 15:20
== END 2018-10-28 15:20 | disposition home or self-care (01) | DRG 384 ==
LOC: 2N 11:19 → ED 11:19 → SUATTDRO 10-26 15:48 → 2N 10-27 21:16
DX: K29.70 Gastritis, unspecified, without bleeding; R91.8 Other nonspecific abnormal finding of lung field; Z79.899 Other long term (current) drug therapy; I10 Essential (primary) hypertension; Z87.891 Personal history of nicotine dependence; E66.01 Morbid (severe) obesity due to excess calories; Z68.39 Body mass index [BMI] 39.0-39.9, adult; K26.9 Duodenal ulcer, unspecified as acute or chronic, without hemorrhage or perforation; T39.395A Adverse effect of other nonsteroidal anti-inflammatory drugs [NSAID], initial encounter